=== PATIENT | female | born 1950 | race Two or more races ===

== ENCOUNTER → 2025-01-23 08:26 | Outpatient (REF) | payer MEDICARE, SELFPAY | LOC: RCS 08:26 | PROVIDERS: ATTENDING PHYSICIAN Nurse Practitioner Family; FAMILY PHYSICIAN Internal Medicine Geriatric Medicine | DX: Q21.0 Ventricular septal defect (principal); I10 Essential (primary) hypertension | CPT/HCPCS: 93005 ==